=== PATIENT | female | born 1970 | race Caucasian/White ===

== ENCOUNTER 2017-07-08 10:11 | Emergency (ER) | payer BC ==
[2017-07-08 10:21] VITALS: RESP 18
[2017-07-08] MEDS ORDERED: ASPIRIN 325 MG TAB PO STA (10:53)
[2017-07-08] MEDS ORDERED: KETOROLAC 30 MG/ML 1 ML VIAL IVP STA (10:53)
--- NOTE | 2017-07-08 11:25 | XR ---
EXAMINATION TYPE: XR shoulder complete RT , 3 VIEWS DATE OF EXAM ORDERED: 07/08/2017 HISTORY: Pain. COMPARISON: None. FINDINGS: No fracture, dislocation or other acute osseous lesion is seen. IMPRESSION: NORMAL RIGHT SHOULDER.
--- NOTE | 2017-07-08 11:25 | XR ---
EXAMINATION TYPE: XR chest 2V DATE OF EXAM: 07/08/2017 HISTORY: shoulder pain. REFERENCE: NONE. FINDINGS: The lungs are clear. Pleural space are clear. Heart size is normal. IMPRESSION: NORMAL CHEST.
[2017-07-08 11:26] LABS: Basophils # (A) 0.1 k/uL (0-0.2); Basophils % (A) 1 %; CH 29.3; CHCM 32.8; Eosinophils # (A) 0.3 k/uL (0-0.7); Eosinophils % (A) 3 %; HCT 45.8 % (34.0-46.0); HDW 2.26; HGB 14.8 gm/dL (11.4-16.0); Luc # (Auto) 0.25; Luc % (Auto) 2; Lymphocytes # (A) 2.4 k/uL (1.0-4.8); Lymphocytes % (A) 21 %; MCH 29.1 pg (25.0-35.0); MCHC 32.4 g/dL (31.0-37.0); Mean Platelet Volume 7.8; Monocytes # (A) 0.7 k/uL (0-1.0); Monocytes % (A) 6 %; Neutrophils # (A) 7.6 k/uL (1.3-7.7); Neutrophils % (A) 67 %; RDW 14.4 % (11.5-15.5); WBC 11.3 k/uL (3.8-10.6); WBC (Perox) 10.91
[2017-07-08 11:35] LABS: Anion Gap 10 mmol/L; Blood Urea Nitrogen 12 mg/dL (7-17); Calcium 9.2 mg/dL (8.4-10.2); Carbon Dioxide 24 mmol/L (22-30); Chloride 106 mmol/L (98-107); Glucose 91 mg/dL (74-99); Non-African American GFR(MDRD) >60 (>60 ml/min/1.73 sqM); Potassium 4.7 mmol/L (3.5-5.1); Sodium 140 mmol/L (137-145)
[2017-07-08] MEDS ORDERED: HYDROcodone/APAP 5-325MG 1 EACH TAB PO STA (14:27)
--- NOTE | 2017-07-08 14:27 | ED ---
General Adult HPI - General Chief complaint: Extremity Injury, Upper Stated complaint: left arm numb and pain Time Seen by Provider: 07/08/17 10:28 Source: patient Mode of arrival: ambulatory Limitations: no limitations - History of Present Illness Initial comments: 47-year-old female presented for evaluation of right arm, shoulder, neck pain with associated decreased sensation. She states her symptoms started last week and have remained the same since. She states that when the symptoms started she went to see her chiropractor who adjusted her neck and back however there is no relief or decrease in her symptoms. She states the pain starts in the neck and goes to the upper back, shoulder, and right arm. There is also associated decreased sensation. She denies decreased pin maker strength, discoloration of the hand, but does state that it feels numb compared to its baseline. There is no chest pain, shortness of breath, fevers, chills, nausea, vomiting, abdominal pain, lightheadedness, dizziness. She does not smoke, does not have a history of diabetes, hypertension, hyperlipidemia, and there is no family history of premature coronary artery disease. - Related Data Home Medications Medication Instructions Recorded Confirmed Ibuprofen [Motrin] 800 mg PO DAILY PRN 07/08/17 07/08/17 Naproxen Sodium [Aleve] 220 mg PO ONCE PRN 07/08/17 07/08/17 traMADol HCL [Ultram] 50 mg PO DAILY PRN 07/08/17 07/08/17 Previous Rx's Medication Instructions Recorded HYDROcodone/APAP 5-325MG [A[facility] 1 - 2 tab PO Q6HR PRN #14 tab 07/08/17 5-325] Allergies Allergy/AdvReac Type Severity Reaction Status Date / Time No Known Allergies Allergy Verified 07/08/17 11:08 Review of Systems ROS Statement: Those systems with pertinent positive or pertinent negative responses have been documented in the HPI. ROS Other: All systems not noted in ROS Statement are negative. Constitutional: Denies: fever, chills Eyes: Denies: eye pain, eye discharge, vision change ENT: Denies: ear pain, throat pain Respiratory: Denies: cough, dyspnea Cardiovascular: Denies: chest pain, palpitations Endocrine: Denies: fatigue, heat or cold intolerance Gastrointestinal: Denies: abdominal pain, nausea, vomiting Genitourinary: Denies: urgency, dysuria Musculoskeletal: Reports: back pain, other (right arm, shoulder, and neck pain) . Denies: arthralgia Skin: Denies: rash, lesions Neurological: Reports: other (decreased sensation to the RUE). Denies: headache , weakness Psychiatric: Denies: anxiety, depression Hematological/Lymphatic: Denies: easy bleeding, easy bruising Past Medical History Past Medical History: No Reported History History of Any Multi-Drug Resistant Organisms: None Reported Past Surgical History: No Surgical Hx Reported Past Psychological History: No Psychological Hx Reported Smoking Status: Current every day smoker Past Alcohol Use History: None Reported Past Drug Use History: None Reported General Exam Limitations: no limitations General appearance: alert, in no apparent distress, anxious Head exam: Present: atraumatic, normocephalic, normal inspection Eye exam: Present: normal appearance, PERRL, EOMI. Absent: scleral icterus, conjunctival injection, periorbital swelling ENT exam: Present: normal exam, mucous membranes moist Neck exam: Present: normal inspection. Absent: tenderness, meningismus, lymphadenopathy Respiratory exam: Present: normal lung sounds bilaterally. Absent: respiratory distress, wheezes, rales, rhonchi, stridor Cardiovascular Exam: Present: regular rate, normal rhythm, normal heart sounds. Absent: systolic murmur, diastolic murmur, rubs, gallop, clicks GI/Abdominal exam: Present: soft, normal bowel sounds. Absent: distended, tenderness, guarding, rebound, rigid Rectal exam: Present: deferred Extremities exam: Present: normal inspection, full ROM, normal capillary refill. Absent: tenderness, pedal edema, joint swelling, calf tenderness Back exam: Present: normal inspection Neurological exam: Present: alert, oriented X3, CN II-XII intact Psychiatric exam: Present: normal affect, normal mood Skin exam: Present: warm, dry, intact, normal color. Absent: rash Course Vital Signs 07/08/17 07/08/17 07/08/17 10:18 11:20 13:23 Temperature 97.2 F L Pulse Rate 85 81 60 Respiratory 18 18 18 Rate Blood Pressure 121/81 127/81 124/77 O2 Sat by Pulse 99 96 98 Oximetry 07/08/17 14:39 Temperature 97.7 F Pulse Rate 74 Respiratory 18 Rate Blood Pressure 135/68 O2 Sat by Pulse 98 Oximetry EKG Findings - EKG Comments: EKG Findings:: Sinus rhythm with short NM and a ventricular rate of 69, PJ 106 , QRS 90, QT/QTC 376/402. Medical Decision Making - Medical Decision Making 47-year-old female presented for evaluation of right upper back, shoulder, and right upper extremity pain with numb sensation. She states her symptoms of been ongoing for the last few days and have not abated. She attempted to have her neck adjusted by a chiropractor without any success. On physical examination there is no reproducibility of her symptoms with range of motion. Pulses, sensation, and motor function are intact to bilateral upper extremities. The patient does appear to be anxious but otherwise remainder physical exam is benign. We'll obtain labs, EKG, chest x-ray, and provide aspirin and Toradol. Labs revealed no significant abnormalities and the EKG is as noted above. Chest x-ray showed no acute process. The patient was reevaluated and had improvement in her symptoms however she stated they were starting to return. Second troponin was negative and the patient was given Aurora and advised to follow-up with her primary care physician but to return to this facility if her symptoms should worsen or persist. The patient acknowledged an understanding of all information provided and agreed with this plan of care. - Lab Data Result diagrams: 07/08/17 11:07 07/08/17 11:07 Lab Results 07/08/17 07/08/17 07/08/17 Range/Units 11:07 11:07 11:07 WBC 11.3 H (3.8-10.6) k/uL RBC 5.10 (3.80-5.40) m/uL Hgb 14.8 (11.4-16.0) gm/dL Hct 45.8 (34.0-46.0) % MCV 90.0 (80.0-100.0) fL MCH 29.1 (25.0-35.0) pg MCHC 32.4 (31.0-37.0) g/dL RDW 14.4 (11.5-15.5) % Plt Count 404 (150-450) k/uL Neutrophils % 67 % Lymphocytes % 21 % Monocytes % 6 % Eosinophils % 3 % Basophils % 1 % Neutrophils # 7.6 (1.3-7.7) k/uL Lymphocytes # 2.4 (1.0-4.8) k/uL Monocytes # 0.7 (0-1.0) k/uL Eosinophils # 0.3 (0-0.7) k/uL Basophils # 0.1 (0-0.2) k/uL Sodium 140 (137-145) mmol/L Potassium 4.7 (3.5-5.1) mmol/L Chloride 106 (98-107) mmol/L Carbon Dioxide 24 (22-30) mmol/L Anion Gap 10 mmol/L BUN 12 (7-17) mg/dL Creatinine 0.74 (0.52-1.04) mg/dL Est GFR (MDRD) Af Amer >60 (>60 ml/min/1.73 sqM) Est GFR (MDRD) Non-Af >60 (>60 ml/min/1.73 sqM) Glucose 91 (74-99) mg/dL Calcium 9.2 (8.4-10.2) mg/dL Troponin I (0.000-0.034) ng/mL NT-Pro-B Natriuret Pep 70 pg/mL 07/08/17 07/08/17 Range/Units 11:07 13:20 WBC (3.8-10.6) k/uL RBC (3.80-5.40) m/uL Hgb (11.4-16.0) gm/dL Hct (34.0-46.0) % MCV (80.0-100.0) fL MCH (25.0-35.0) pg MCHC (31.0-37.0) g/dL RDW (11.5-15.5) % Plt Count (150-450) k/uL Neutrophils % % Lymphocytes % % Monocytes % % Eosinophils % % Basophils % % Neutrophils # (1.3-7.7) k/uL Lymphocytes # (1.0-4.8) k/uL Monocytes # (0-1.0) k/uL Eosinophils # (0-0.7) k/uL Basophils # (0-0.2) k/uL Sodium (137-145) mmol/L Potassium (3.5-5.1) mmol/L Chloride (98-107) mmol/L Carbon Dioxide (22-30) mmol/L Anion Gap mmol/L BUN (7-17) mg/dL Creatinine (0.52-1.04) mg/dL Est GFR (MDRD) Af Amer (>60 ml/min/1.73 sqM) Est GFR (MDRD) Non-Af (>60 ml/min/1.73 sqM) Glucose (74-99) mg/dL Calcium (8.4-10.2) mg/dL Troponin I <0.012 <0.012 (0.000-0.034) ng/mL NT-Pro-B Natriuret Pep pg/mL Disposition Clinical Impression: Shoulder pain, acute Disposition: HOME SELF-CARE Condition: Stable Instructions: Shoulder Pain (ED) Additional Instructions: Please use medication as discussed. Please follow up with family doctor if symptoms have not improved over the next two days. Please return to the emergency room if your symptoms increase or worsen or for any other concerns. Prescriptions: HYDROcodone/APAP 5-325MG [Aur[facility] 5-325] 1 - 2 tab PO Q6HR PRN #14 tab PRN Reason: Analgesia Referrals: Maryam Street MD [Primary Care Provider] - 1-2 days Time of Disposition: 14:31
[2017-07-08 15:38] VITALS: BP 135/68; PULSE 74; TEMP 97.7
== END 2017-07-08 14:44 | disposition home or self-care (01) ==
LOC: EC 10:11
DX: M25.511 Pain in right shoulder (principal); R20.0 Anesthesia of skin; M54.2 Cervicalgia; M54.6 Pain in thoracic spine; F17.200 Nicotine dependence, unspecified, uncomplicated
CPT/HCPCS: 36415; 93005; 83880; 80048; 84484; 85025; 71020; 73030; 99284; 96374; J1885